=== PATIENT | male | born 1985 | race Caucasian/White ===

== ENCOUNTER 2019-12-18 11:32 | Emergency (ER) | payer SELFPAY ==
[~2019-12-18] VITALS: Ht 175.3 cm; Wt 78.3 kg
--- NOTE | 2019-12-18 12:45 | NUR ---
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
--- NOTE | 2019-12-18 13:01 | NUR ---
pt here for c/o body pain, arnold when coughing, frequent cough that produces white phlem.
--- NOTE | 2019-12-18 13:01 | NUR ---
REPORT OF PT TO SANDI STOCKTON. ALL QUESTIONS ANSWERED.
--- NOTE | 2019-12-18 13:02 | NUR ---
Crispin ugarte in ED - 12/18/19 at 1302 by JAQUELINE REPORT OF PT TO SANDI STOCKTON. ALL QUESTIONS ANSWERED.
[2019-12-18 14:01] VITALS: BP 119/77
[2019-12-18] MEDS ORDERED: IBUPROFEN 800 MG TABLET ONE (14:13)
[2019-12-18] MEDS ORDERED: IBUPROFEN 800 MG TABLET PO ONE (14:30)
== END 2019-12-18 14:52 | disposition home or self-care (01) ==
LOC: ED 14:40
DX: J20.9 Acute bronchitis, unspecified (principal); Z20.828 Contact with and (suspected) exposure to other viral communicable diseases; R00.0 Tachycardia, unspecified; M79.10 Myalgia, unspecified site
CPT/HCPCS: 36415; 71045; 87635; 93005; 99285